=== PATIENT | female | born 1985 | race African-American/Black ===

== ENCOUNTER 2019-04-18 12:36 | Emergency (ER) | payer MEDICAID ==
[~2019-04-18] VITALS: Ht 157.5 cm; Wt 59.0 kg
[2019-04-18 12:50] VITALS: BP 122/74
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
--- NOTE | 2019-04-18 13:50 | NUR ---
ED Nurse Note: pt went to xray with tech
--- NOTE | 2019-04-18 14:00 | NUR ---
ED Nurse Note: pt refused c spine xray, pt stated it doesnt bother her anymore.
[2019-04-18] MEDS ORDERED: ROBAXIN500 MG PO (14:29)
[2019-04-18] MEDS ORDERED: NAPROXEN500 M2 ORAL (14:29)
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
[2019-04-18 15:10] VITALS: BP 128/68
--- NOTE | 2019-04-18 15:10 | NUR ---
ER DISCHARGE NOTE: Patient is cleared to be discharged per ERMD, pt is aox4, on room air, with stable vital signs. pt was given dc and prescription instructions, pt was able to verbalize understanding, pt id band removed. pt is able to ambulate with steady gait. pt took all belongings.
== END 2019-04-18 15:10 | disposition home or self-care (01) ==
LOC: EDBD 12:36 → EMR 13:20
DX: S16.1XXA Strain of muscle, fascia and tendon at neck level, initial encounter (principal); S39.012A Strain of muscle, fascia and tendon of lower back, initial encounter; V43.52XA Car driver injured in collision with other type car in traffic accident, initial encounter; Y92.410 Unspecified street and highway as the place of occurrence of the external cause; R51 Headache; R42 Dizziness and giddiness
CPT/HCPCS: 72020; 81025; 99283